=== PATIENT | male | born 1955 | race Caucasian/White ===

== ENCOUNTER → 2020-10-22 | Day surgery (SDC) | payer OTHER ==
[~2020-10-22] MED LIST: ASPIRIN CHEWABL81 MG PO; ATORVASTATIN CA40 MG PO; CHANTIX0.5 MG PO; CLOPIDOGREL75 MG PO; GLUCOTROL XL10 MG PO; ISOSORBIDE MONO60 MG PO; KENALOG 0.5% CR15 GM EXT; LASIX20 MG PO; NITROSTAT 0.40.4 MG SL; TOPROL XL25 MG PO; ULTRAM50 MG PO; ZYRTEC10 M3 PO
== END | disposition home or self-care (01) ==
LOC: OR 11:39
DX: R31.0 Gross hematuria (principal); N28.1 Cyst of kidney, acquired; N40.1 Benign prostatic hyperplasia with lower urinary tract symptoms; R35.0 Frequency of micturition; R35.1 Nocturia; I10 Essential (primary) hypertension; J44.9 Chronic obstructive pulmonary disease, unspecified; G35 Multiple sclerosis; M06.9 Rheumatoid arthritis, unspecified; K21.9 Gastro-esophageal reflux disease without esophagitis; E78.00 Pure hypercholesterolemia, unspecified; F41.9 Anxiety disorder, unspecified; F32.9 Major depressive disorder, single episode, unspecified; F17.200 Nicotine dependence, unspecified, uncomplicated; Z79.82 Long term (current) use of aspirin; Z79.02 Long term (current) use of antithrombotics/antiplatelets; Z79.84 Long term (current) use of oral hypoglycemic drugs; Z79.899 Other long term (current) drug therapy; Z20.822 Contact with and (suspected) exposure to COVID-19
CPT/HCPCS: 82962; J7040; U0002